=== PATIENT | female | born 1985 | race Two or more races ===

== ENCOUNTER 2022-10-09 13:57 | Outpatient (CLI) | payer OTHER | END 2022-10-09 14:00 | disposition home or self-care (01) | LOC: LAB 13:57 | PROVIDERS: ATTEND Internal Medicine Hematology & Oncology | DX: D50.8 Other iron deficiency anemias (principal); D68.8 Other specified coagulation defects; D69.1 Qualitative platelet defects; D68.00 Von Willebrand disease, unspecified; D66 Hereditary factor VIII deficiency; C56.9 Malignant neoplasm of unspecified ovary; R97.8 Other abnormal tumor markers; R97.1 Elevated cancer antigen 125 [CA 125]; N93.8 Other specified abnormal uterine and vaginal bleeding ==